=== PATIENT | female | born 1990 | race Caucasian/White ===

== ENCOUNTER 2019-02-27 04:24 | Inpatient (IN) | payer OTHER ==
[2019-02-27] VITALS (56 sets, daily range): BP systolic 107–145; BP diastolic 56–99; PULSE 67–127; TEMP 97.5–99.2
[~2019-02-27] VITALS: Ht 149.9 cm; Wt 72.7 kg
--- NOTE | 2019-02-27 04:25 | NUR ---
G1 at 40 weeks and 5 days presents to unit with complaint of contractions about every 2-3 minutes. Pt states that they don't last long but they are pretty frequent and they started to get worse around 0345. Pt reports good movement, has has some spotting, denies LOF. Pt denies headaches, blurry vision, or RUQ pain. Pt oriented to room, call light within reach, bed in low and locked position. EFM and toco explained and applied. SVE /-2. Plan of care reviewed with patient and spouse. Vital signs obtained. Admission assessment started.
[2019-02-27] MEDS ORDERED: FLINTSTONES COM1 CT1 PO (04:43)
[2019-02-27] MEDS ORDERED: COLACE 100100 MG/CAP PO (04:44)
--- NOTE | 2019-02-27 06:30 | NUR ---
0625 Report received and care assumed. Patient is shaking and breathing and moaning through contractions. Her is at her side for support. EFMs reconnected. SVE /2 with bloody show noted. Plan of care reviewed with patient and spouse.
--- NOTE | 2019-02-27 06:45 | NUR ---
IV started in left hand with labs drawn from site. Patient requesting epidural. CLAY MILLER on unit and notified. IVF bolus started per protocol.
--- NOTE | 2019-02-27 07:07 | NUR ---
0700 MARY ANN Nance to room to place epidural. Patient sits upright on the edge of the bed for procedure. 0707 - Test dose administered by MARY ANN Nance. See anesthesia record for details. 0715 - Patient wedged to left side in bed. Plan of care reviewed.
[2019-02-27 07:58] LABS: BASO % 0.3 % (0.0-2.0); EOS % 0.2 % (0-4.0); GRAN # 9.7 (1.4-6.5); GRAN % 81.7 % (42.2-75.2); HEMOGLOBIN 10.8 g/dl (12.5-16.0); LYMPH # 1.2 (1.2-3.4); LYMPH % 10.1 % (20.0-51.0); MEAN CELL VOLUME 84 fl (80.0-100.0); MEAN CORPUSCULAR HEMOGLOBIN 28 pg (27.0-31.0); MEAN CORPUSCULAR HGB CONC 33 g/dl (33.0-37.0); MEAN PLATELET VOLUME 11.8 fl (7.4-10.4); MONO # 0.8 (0.1-0.6); MONO % 7.1 % (1.7-9.3); PLATELET COUNT 218 K/mm3 (130-400); RED BLOOD COUNT 3.91 M/mm3 (4.10-5.30)
[2019-02-27 08:03] LABS: HEMATOCRIT 32.8 % (37.0-47.0)
--- NOTE | 2019-02-27 08:30 | NUR ---
0851 Dr. Stratton to room, reviews FHR tracing. Discusses plan of care with patient and spouse. Bedside sono performed and vertex confirmed by Dr. Stratton. 0830 SVE with AROM by Dr. Stratton. , bloody show, fluid appears clear at this time.
--- NOTE | 2019-02-27 08:33 | NUR ---
0833 late FHR deceleration down to 90 bpm lasting 80 seconds, spontaneous return to baseline of 125 bpm. Patient turned to high left side.
--- NOTE | 2019-02-27 11:15 | NUR ---
1018 - FHR deceleration down to 110 bpm over 3 minutes with a spontaneous return to baseline of 120 bpm. 1043 - FHR deceleration down to 100 bpm over 2 minutes with a spontaneous return to baseline of 120 bpm. 1052 - FHR decelartion down to 110 bpm over 2 minutes with a spontaneous return to baseline of 120 bpm. 1109 - FHR deceleration down to 100 bpm over 2.5 minutes with a spontaneous return to baseline of 115 bpm. 1113 - SVE-5/90/-1, clear fluid noted, bloody show. Patient turned to high left side. Dr. Stratton called and updated on intermittent FHR decelerations and intermittent minimal variability.
--- NOTE | 2019-02-27 12:15 | NUR ---
Patient turned to high right side with peanut ball between legs. Light meconium fluid noted on pads.
--- NOTE | 2019-02-27 14:00 | NUR ---
1330 - Patient c/o feeling nauseous. 1334 - 4mg Zofran given IV. 1344 - Patient with small amount of emesis. During emesis FHR intermittenly tracing. 1346 - Dr. Stratton to room. SVE 5/80/-1, light meconium fluid noted. 1347 - Patient turned to high left side. FHR down to 60 bpm over 20 seconds with a slight increase to 90 bpm for 5 minutes. During this time patient turned to high right side and then to knee chest. LR bolus started and O2 applied at 10L per mask. Dr. Stratton remains at bedside during deceleration. 1352 FHR slowly returns to baseline of 120 bpm. Late decelerations noted at [address] Stratton remains on unit and aware.
--- NOTE | 2019-02-27 14:25 | NUR ---
FHR 135 bpm with no decelerations noted, moderate variability. Patient assisted to right side with peanut ball between legs.
--- NOTE | 2019-02-27 15:00 | NUR ---
1445 - Dr. Stratton called in and updated on FHR tracing. Orders to start pitocin per protocol. 1500 - Pitocin started at 2mu per orders and protocol.
--- NOTE | 2019-02-27 17:30 | NUR ---
Dr. Stratton at bedside and reviews FHR tracing. Updated on SVE.
--- NOTE | 2019-02-27 18:00 | NUR ---
1748 FHR deceleration down to 70 bpm with a slow return to baseline over 3 minutes. 1753 FHR deceleration down to 70 bpm with a slow return to baseline over 3 minutes. During this time patient turned to high left side, pitocin turned off, and O2 applied at 10L per mask. 1800 Dr[address] Stratton called and updated on patient's status. Orders to restart pitocin at 4mu after 20 minutes with no FHR decelerations.
--- NOTE | 2019-02-27 18:41 | NUR ---
FHT's with variable decelaration to 90's with contraction, returns to baseline by end of contraction.
--- NOTE | 2019-02-27 20:12 | NUR ---
FHT's with rapid onset late deceleration to 70's, pt turned to supine, returns briefly to 150's then to 100's, SVE Anterior lip, O2 on, LR to bolus rate. FHT's 120's-150's. 2018 Phenergan 25mg Slow IV per pt request, stating "I have to have something for this nausea, and Zofran didn't work earlier" FHT's 150's with variables to 120's.
--- NOTE | 2019-02-27 20:39 | NUR ---
SVE Complete, FHT's with deep variables to 70's-90's. Pushing well
--- NOTE | 2019-02-27 21:20 | NUR ---
Dr Stratton into room, pt set and prepped for delivery. [address] Stratton[address] to warmer.
--- NOTE | 2019-02-27 21:28 | NUR ---
Placenta delivers spont and intact, Pitcin gtt retarted at bolus rate. Perineal inspection and repair started.
[2019-02-28] VITALS: BP 115/53; PULSE 87; TEMP 99.1
[2019-02-28 00:39] VITALS: BP 114/57; PULSE 75
--- NOTE | 2019-02-28 00:40 | NUR ---
IV to INT, Epidural dc'd. Pt up to bathroom with steady gait, voids large amount, performs own pericare after instruction. Clean gown on and ambulates to post- room.
[2019-02-28 04:50] VITALS: BP 110/63; PULSE 61
[2019-02-28 07:18] VITALS: BP 125/76; PULSE 90; TEMP 97.4
[2019-02-28 08:06] LABS: HEMATOCRIT 31.3 % (37.0-47.0)
--- NOTE | 2019-02-28 09:12 | NUR ---
Initial visit; Parents thanked [employer] Re[employer] for offering congratulations and God's blessings for the of their son. [facility] Re[facility]er thanked family for choosing our hospital.
[2019-02-28 16:51] VITALS: BP 112/63; PULSE 95; TEMP 97.7
[2019-02-28 20:40] VITALS: BP 135/80; PULSE 92; TEMP 98.1
--- NOTE | 2019-03-01 08:00 | NUR ---
Rests in bed, alert. Feeding baby, encouraged to feed baby more.
[2019-03-01 09:00] VITALS: BP 136/80; PULSE 83; TEMP 97.9
--- NOTE | 2019-03-01 09:00 | NUR ---
Rests in bed, alert. Assessment done. Ibuprofen 600 mg given as ordered. Denies other needs at this time.
[2019-03-01] MEDS ORDERED: IBU600 MG PO (09:12)
--- NOTE | 2019-03-01 10:00 | NUR ---
Rests in bed, alert. Denies any needs at this time.
--- NOTE | 2019-03-01 11:00 | NUR ---
1110 Percocet 5/325 mg. one given as ordered and per request.
--- NOTE | 2019-03-01 14:00 | NUR ---
1420 States having pain. Percocet 5/325 mg. one given per request and as ordered.
[2019-03-01 16:30] VITALS: BP 138/81; PULSE 89; TEMP 98.3
--- NOTE | 2019-03-01 17:00 | NUR ---
Discharge instructions given. Verbalizes understanding. To border status.
== END 2019-03-01 17:00 | disposition home or self-care (01) | DRG 807 ==
LOC: LDRO 04:24 → LDR 04:48 → OB 04:48 → LDR 04:48 → OB 02-28 00:45
PROVIDERS: Obstetrics & Gynecology; Student in an Organized Health Care Education/Training Program; ADMIT Obstetrics & Gynecology
PROC: 10E0XZZ Delivery of Products of Conception, External Approach (ICD-10-PCS; principal; 2019-02-27)
PROC: 0KQM0ZZ Repair Perineum Muscle, Open Approach (ICD-10-PCS; 2019-02-27)
DX: O48.0 Post-term pregnancy (principal); Z37.0 Single live birth; Z3A.40 40 weeks gestation of pregnancy; O99.02 Anemia complicating childbirth; O99.344 Other mental disorders complicating childbirth; F41.9 Anxiety disorder, unspecified; O77.0 Labor and delivery complicated by meconium in amniotic fluid; O76 Abnormality in fetal heart rate and rhythm complicating labor and delivery; O70.1 Second degree perineal laceration during delivery
CPT/HCPCS: J2405; J2550; J2590; J2795; J7120